=== PATIENT | female | born 1990 | race Two or more races ===

== ENCOUNTER 2020-12-02 13:56 | Emergency (ER) | payer OTHER ==
[~2020-12-02] VITALS: Ht 160 cm; Wt 72.6 kg
[2020-12-02 14:34] VITALS: BP 105/68
== END 2020-12-02 16:36 | disposition home or self-care (01) ==
LOC: ER 13:56
DX: S63.502A Unspecified sprain of left wrist, initial encounter (principal); M25.572 Pain in left ankle and joints of left foot; W18.00XA Striking against unspecified object with subsequent fall, initial encounter; Y93.89 Activity, other specified; Y92.89 Other specified places as the place of occurrence of the external cause; Y99.8 Other external cause status
CPT/HCPCS: 73120; 73600